=== PATIENT | female | born 1960 | race African-American/Black ===

== ENCOUNTER 2018-05-29 21:04 | Emergency (ER) | payer MEDICAID, OTHER ==
[~2018-05-29] VITALS: Ht 162.6 cm; Wt 80.0 kg
[~2018-05-29 21:04] MED LIST: PRED1TAB
[2018-05-29 22:34] VITALS: BP 141/73
[2018-05-29] MEDS ORDERED: MAGNESIUM/ALUMINUM HYDROXIDE/SIMETHICONE 30ML UDC PO STA (22:57)
[2018-05-29] MEDS ORDERED: FAMOTIDINE 20MG/2ML VIAL IV STA (22:57)
[2018-05-30] LABS: HEMATOCRIT. 37.2 % (36.0-48.0); HEMOGLOBIN. 12.6 g/dL (12.0-16.0); LYMPHOCYTES % 49.5 % (20.0-50.0); MEAN CORPUSCULAR HEMOGLOBIN 29.7 pg (28.0-32.0); MEAN CORPUSCULAR VOLUME 87.9 fL (81.0-99.0); MEAN PLATELET VOLUME 9.3 fl (7.4-10.4); MONOCYTES % 6.3 % (2.0-8.0); NEUTROPHILS % 40.2 % (40.0-76.0); PLATELET 220 x1000/uL (130-400); RED BLOOD CELL COUNT 4.23 mill/uL (4.2-5.4)
[2018-05-30 00:30] LABS: CHLORIDE 107 mEq/L (98-107)
== END 2018-05-30 01:00 | disposition home or self-care (01) ==
LOC: ER 21:04
DX: K21.9 Gastro-esophageal reflux disease without esophagitis (principal); Z87.440 Personal history of urinary (tract) infections; Z88.2 Allergy status to sulfonamides
CPT/HCPCS: 36415; 71045; 83880; 84484; 93005; 99284